=== PATIENT | male | born 1955 | race Caucasian/White ===

== ENCOUNTER 2019-07-19 05:07 | Day surgery (SDC) | payer MEDICARE, OTHER ==
[~2019-07-19] VITALS: Ht 175.3 cm; Wt 70.8 kg
[~2019-07-19 05:07] MED LIST: CIPRO500 MG PO; FISH OIL 1,0001 CA1 PO; LEVOTHYROXINE50 MCG PO; NEXIUM20 MG PO
[2019-07-19 05:56] LABS: HEMATOCRIT 46.1 % (42.0-54.0); HEMOGLOBIN 15.1 g/dL (13.5-17.5); MCH 30.9 pg (26.0-34.0); MCHC 32.8 g/dL (31.0-37.0); MCV 94.3 fL (80.0-100.0); MEAN PLATELET VOLUME 10.4 fL (7.4-10.4); RBC 4.89 10x6/uL (4.20-6.10); RDW 14.4 % (11.5-14.5)
[2019-07-19 06:53] VITALS: BP 148/84; Ht 175.3 cm; Wt 70.8 kg
--- NOTE | 2019-07-19 08:36 | NUR ---
0893 DR. MYRIAM NINO. [place] DIET ORDERED.
--- NOTE | 2019-07-19 08:43 | NUR ---
0840 UP TO BR VOIDS QS WITH SM. AMT OF INITIAL BLOOD. [place] DIET SERVED. AT SIDE.
--- NOTE | 2019-07-19 09:03 | NUR ---
0900 ATE 100% FL DIET IV DC'D WITH CATH INTACT DC INSTS REVIEWED VOICED UNDERSTANDING STATES READY FOR RELEASE GETTING DRESSED TO BE RELEASED IN WC.
--- NOTE | 2019-07-19 10:11 | OP ---
PATIENT NAME: LARS BERGERON MEDICAL RECORD: [id number] :51 LOCATION:D.OPS ADMISSION DATE: SURGEON: JAMIN MIGUEL MD DATE OF OPERATION: 07/19/2019 SURGEON: Jamin Miguel MD ANESTHESIA: TIVA by Morena Vora CRNA DIAGNOSES: Elevated PSA of 4.7 on 05/26/2019, bladder outlet obstruction. PROCEDURE: Cystoscopy and transrectal ultrasound with prostate biopsy. FINDINGS: On cystoscopy, tight bladder neck. Single ureteral orifices bilaterally. No bladder tumors. Trabeculated bladder. The lateral lobes of the prostate are not obstructive and there is no median lobe. Transrectal ultrasound showed a 19 gram prostate with intraprostatic stones causing shadowing. SPECIMENS: Prostate biopsy cores. BLOOD LOSS: Minimal. CLINICAL HISTORY: This is a 64-year-old male, who has an elevated PSA of 4.7. The PSA last year was 2.4. He has some nocturia, daytime urinary frequency, otherwise has a good urinary flow. He comes today for cystoscopy and transrectal ultrasound and prostate biopsy. There is no family history of prostate cancer. ALLERGIES: HE IS ALLERGIC TO SULFA. 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 DESCRIPTION OF PROCEDURE: The patient was given IV sedation. He was then placed into lithotomy position. Cystoscopy was performed using a 17-Bulgarian cystoscope. Findings are as outlined above. The bladder was then emptied through the scope and the scope was removed. The transrectal ultrasound probe was introduced. There was a large collection of stones in the bladder neck region, which causes extensive shadowing there. No hypoechoic areas were otherwise found. The prostate size was measured at 19 grams. Sextant biopsies were obtained with at least 3 cores from each sextant. Once all the specimens were obtained, then the procedure was terminated. The patient will be seen next week to review the pathology results with him. TRANSINT:[id number] Voice Confirmation ID: [id number] DOCUMENT ID: [id number] JAMIN MIGUEL MD at 1011 CC: [id number] DICTATION DATE: 07/19/19 08 HEALTHCARE MARKETER: 07/19/19 100[address] [facility] 07/19/19 [place] [address]
== END 2019-07-19 09:10 | disposition home or self-care (01) ==
LOC: D.OPS 05:07 → D.PAN 07:00 → D.OPS 07:00 → D.PAN 08:30 → D.OPS 09:10
PROVIDERS: Anesthesiology; ATTEND Urology
DX: N32.0 Bladder-neck obstruction (principal); R97.20 Elevated prostate specific antigen [PSA]; E78.00 Pure hypercholesterolemia, unspecified